=== PATIENT | female | born 1950 | race Caucasian/White ===

== ENCOUNTER → 2017-08-31 | Outpatient (CLI) | payer BC ==
[~2017-08-31] MED LIST: ASP325T PO; C250T PO; CHOL10007 PO; LVT.1T PO; MULT-301 PO; OMG1KC PO; VITA1TAB17 PO
--- NOTE | 2017-08-31 12:40 | Diagnostic Imaging Report ---
PROCEDURE: MRI right joint upper extremity without contrast. TECHNIQUE: A multiplanar/multisequence noncontrast enhanced MRI of the right upper extremity was accomplished. INDICATION: Right shoulder pain x 2 months. FINDINGS: There is no significant right shoulder joint effusion. There is abnormal increased T2 signal within the distal supraspinatus tendon with associated marrow edema within the adjacent humeral head. There is fluid in the subacromial and subdeltoid bursa with moderate acromioclavicular degenerative change. The teres minor and subscapularis muscle tendons appear to be unremarkable. There is no evidence of abnormality involving the long head biceps tendon. Evaluation of the labrum is limited without intra-articular fluid; however, no definite abnormality is seen. IMPRESSION: The findings are compatible with chronic tendinosis and a probable partial tear of the distal supraspinatus tendon with associated acromioclavicular degenerative change and subacromial/subdeltoid bursitis. There is no evidence of rotator cuff retraction. Dictated by: Dictated on workstation # [id number]
== END ==
LOC: RAD 11:12
PROVIDERS: ATTEND Orthopaedic Surgery
DX: M75.111 Incomplete rotator cuff tear or rupture of right shoulder, not specified as traumatic (principal); M19.011 Primary osteoarthritis, right shoulder
CPT/HCPCS: 73221

== ENCOUNTER 2017-09-27 12:27 | Outpatient (CLI) | payer BC ==
[~2017-09-27] VITALS: Ht 171.4 cm; Wt 83.0 kg
[2017-09-27] MEDS ORDERED: LEVO100T7 PO (12:47)
[2017-09-27] MEDS ORDERED: MULT1TAB69 PO (12:47)
[2017-09-27] MEDS ORDERED: ASPI-808 PO (12:47)
== END 2017-09-27 13:00 | disposition home or self-care (01) ==
LOC: PREOP 12:27
PROVIDERS: ATTEND Orthopaedic Surgery
DX: Z01.818 Encounter for other preprocedural examination (principal); Z11.2 Encounter for screening for other bacterial diseases; M75.101 Unspecified rotator cuff tear or rupture of right shoulder, not specified as traumatic
CPT/HCPCS: 87081

== ENCOUNTER 2017-09-29 07:35 | Day surgery (SDC) | payer BC ==
[~2017-09-29] VITALS: Ht 171.4 cm; Wt 83.0 kg
[2017-09-29 07:35] VITALS: BP 118/78
[~2017-09-29 07:35] MED LIST changes: +ASPI-808 PO; +LEVO100T7 PO; +MULT1TAB69 PO
--- OUTSIDE RECORDS SUMMARY | 2017-09-29 07:45 | XMS REPORT | Continuity of Care Document ---
Author Author [facility] Organization [facility] Address Unknown Phone Unavailable Allergies Active Description Code Type Severity Reaction Onset Reported/Identified Relationship to Patient Clinical Status Yes Penicillins [id number] Drug Allergy Moderate RASH 08/12/2007 Medications There is no data. Problems Date Dx Coded Attending Type Code Diagnosis Diagnosed By 01/07/2010 Ot 575.11 06/19/2015 Ot 575.8 06/19/2015 Ot V72.63 06/19/2015 Ot V74.8 06/19/2015 Ot 610.4 06/19/2015 Ot 733.90 06/19/2015 Ot V43.82 06/19/2015 Ot V76.12 06/19/2015 Ot 211.3 06/19/2015 Ot 216.5 06/19/2015 Ot 241.1 06/19/2015 Ot 244.9 06/19/2015 Ot 285.9 06/19/2015 Ot 286.3 06/19/2015 Ot 337.22 06/19/2015 Ot 415.19 06/19/2015 Ot 710.8 06/19/2015 Ot 719.49 06/19/2015 Ot 733.90 06/19/2015 Ot 780.52 06/19/2015 Ot 786.59 06/19/2015 Ot 791.9 06/19/2015 Ot 793.80 06/19/2015 Ot 795.01 06/19/2015 Ot 795.79 06/19/2015 Ot V58.61 06/19/2015 FLAKO GASTELUM DO Ot 710.2 06/24/2015 Ot 610.4 06/24/2015 Ot 733.90 06/24/2015 Ot V43.82 06/24/2015 Ot V76.12 06/24/2015 Ot 211.3 06/24/2015 Ot 216.5 06/24/2015 Ot 241.1 06/24/2015 Ot 244.9 06/24/2015 Ot 285.9 06/24/2015 Ot 286.3 06/24/2015 Ot 337.22 06/24/2015 Ot 415.19 06/24/2015 Ot 710.8 06/24/2015 Ot 719.49 06/24/2015 Ot 733.90 06/24/2015 Ot 780.52 06/24/2015 Ot 786.59 06/24/2015 Ot 791.9 06/24/2015 Ot 793.80 06/24/2015 Ot 795.01 06/24/2015 Ot 795.79 06/24/2015 Ot V58.61 06/24/2015 FLAKO GASTELUM DO Ot 710.2 06/26/2015 REMIGIO PEDERSON MD, Ot K57.90 DVRTCLOS OF INTEST, PART UNSP, W/O PERF 06/26/2015 REMIGIO PEDERSON MD, Ot K62.1 RECTAL POLYP 06/26/2015 REMIGIO PEDERSON MD, Ot K63.5 POLYP OF COLON 06/26/2015 REMIGIO PEDERSON MD, Ot K64.0 FIRST DEGREE HEMORRHOIDS 06/26/2015 RMEIGIO PEDERSON MD, Ot Z09 ENCNTR FOR F/U EXAM AFT TRTMT FOR COND O 06/26/2015 REMIGIO PEDERSON MD Ot Z12.11 ENCOUNTER FOR SCREENING FOR MALIGNANT NE 08/30/2017 FLAKO GASTELUM DO Ot 710.2 SICCA SYNDROME 08/30/2017 REMIGIO PEDERSON MD Ot Z01.818 ENCOUNTER FOR OTHER PREPROCEDURAL EXAMIN 08/30/2017 REMIGIO PEDERSON MD, Ot Z12.11 ENCOUNTER FOR SCREENING FOR MALIGNANT NE 08/30/2017 REMIGIO PEDERSON MD Ot Z86.010 PERSONAL HISTORY OF COLONIC POLYPS 09/01/2017 SALLY BURK MD Ot M19.011 PRIMARY OSTEOARTHRITIS, RIGHT SHOULDER 09/01/2017 SALLY BURK MD Ot M75.111 INCOMPLETE ROTATR-CUFF TEAR/RUPTR OF R S 09/16/2017 SALLY BURK MD Ot M19.011 PRIMARY OSTEOARTHRITIS, RIGHT SHOULDER 09/16/2017 SALLY BURK MD Ot M75.111 INCOMPLETE ROTATR-CUFF TEAR/RUPTR OF R S 09/23/2017 SALLY BURK MD Ot M19.011 PRIMARY OSTEOARTHRITIS, RIGHT SHOULDER 09/23/2017 SALLY BURK MD, Ot M75.111 INCOMPLETE ROTATR-CUFF TEAR/RUPTR OF R S 09/27/2017 SALLY BURK MD, Ot M19.011 PRIMARY OSTEOARTHRITIS, RIGHT SHOULDER 09/27/2017 SALLY BURK MD, Ot M75.111 INCOMPLETE ROTATR-CUFF TEAR/RUPTR OF R S 09/27/2017 SALLY BURK MD, Ot M19.011 PRIMARY OSTEOARTHRITIS, RIGHT SHOULDER 09/27/2017 SALLY BURK MD, Ot M75.111 INCOMPLETE ROTATR-CUFF TEAR/RUPTR OF R S 09/28/2017 SALLY BURK MD, Ot M75.101 UNSP ROTATR-CUFF TEAR/RUPTR OF RIGHT JOSUE 09/28/2017 SALLY BURK MD, Ot Z01.818 ENCOUNTER FOR OTHER PREPROCEDURAL EXAMIN 09/28/2017 SALLY BURK MD, Ot Z11.2 ENCOUNTER FOR SCREENING FOR OTHER BACTER Procedures There is no data. Results Test Result Range Methicillin resistant Staphylococcus aureus (MRSA) screening culture - 12:49 Methicillin resistant Staphylococcus aureus (MRSA) screening culture NEG NRG Encounters ACCT No. Visit Date/Time Discharge Status Pt. Type Provider Facility Loc./Unit Complaint [id number] 09/27/2017 12:27:00 09/27/2017 13:00:00 DIS Outpatient SALLY BURK MD [facility] PREOP RIGHT SHOULDER ROTATOR CUFF TEAR [id number] 08/31/2017 11:12:00 08/31/2017 23:59:59 CLS Outpatient SALLY BURK MD [facility] RAD ROTATOR CUFF TEAR PARTIAL RT [id number] 06/26/2015 09:11:00 06/26/2015 12:50:00 DIS Outpatient [facility] SCREEN[facility],HISTORY OF POLYPS [id number] 06/24/2015 14:53:00 06/24/2015 23:59:59 CLS Outpatient REMIGIO PEDERSON MD [facility] PREOP HISTORY POLPS [id number] 08/03/2013 12:45:00 08/03/2013 23:59:59 CLS Outpatient FLAKO GASTELUM DO [facility] LAB SICCA SYNDROME,SJOGRENS SYNDROME [id number] 09/29/2017 09:45:00 TREE BURK MD, SALLY [facility] RIGHT SHOULDER ROTATOR CUFF TEAR [id number] 11/16/2011 14:46:00 Document Registration [id number] 01/28/2010 09:56:00 Document Registration [id number] 01/07/2010 05:40:00 Document Registration [id number] 12/31/2009 10:34:00 Document Registration
--- OUTSIDE RECORDS SUMMARY | 2017-09-29 07:45 | XMS REPORT | Clinical Summary ---
Author Author User, [employer] ([employer]) Organization [facility] [place] Address Unknown Phone Unavailable Allergies, Adverse Reactions, Alerts Allergy Name Reaction Description Start Date Severity Status Provider PENICILLIN Dermatological problems, e.g., rash, hives Critical Active Natacha Domínguez Conditions or Problems Problem Name Problem Code Onset Date Status Entry Date Provider Comment Standard Description Annotate ABFND, IMMUNOLOGIL NOS 795.79 Resolved Natacha Domínguez Other and unspecified nonspecific immunological findings DEEP VENOUS THROMBOPHLEBITIS, RECURRENT 451.19 Resolved Natacha Domínguez Phlebitis and thrombophlebitis of other deep vessels of lower extremities PULMONARY EMBOLISM 415.19 Resolved Natacha Domínguez Other pulmonary embolism and infarction LEG PAIN, LEFT 729.5 Resolved Natacha Domínguez Pain in limb CHEST PAIN 786.50 Resolved Natacha Domínguez Unspecified chest pain DYSTROPHY, REFLEX SYMPATHETIC, LOWER LIMB 337.22 Resolved 11/29 Natacha Domínguez Reflex sympathetic dystrophy of the lower limb INSOMNIA, CHRONIC 780.52 Resolved Natacha Domínguez Insomnia, unspecified WEIGHT GAIN, ABNORMAL 783.1 Resolved Natacha Domínguez Abnormal weight gain COUMADIN THERAPY V58.61 Resolved Natacha Domínguez Long-term (current) use of anticoagulants COLONIC POLYPS 211.3 Resolved Natacha Domínguez Benign neoplasm of colon HEMATOMA 924.9 Resolved Natacha Domínguez Contusion of unspecified site Left arm POLYARTHRALGIA 719.49 Resolved Natacha Domínguez Pain in joint involving multiple sites WELL WOMAN V70.0 Resolved Natacha Domínguez Routine general medical examination at a health care facility NEVUS, ATYPICAL, ABDOMEN 216.5 Resolved Natacha Domínguez Benign neoplasm of skin of trunk, except scrotum ABDOMINAL PAIN, LEFT LOWER QUADRANT 789.04 Resolved Natacha Domínguez Abdominal pain, left lower quadrant COAGULOPATHY, COUMADIN-INDUCED 286.5 Resolved Natacha Domínguez Hemorrhagic disorder due to intrinsic circulating anticoagulants, antibodies, or inhibitors DISEASE, DIFFUSE CONNECTIVE TISSUE NEC 710.8 Resolved Natacha Domínguez Other specified diffuse diseases of connective tissue ANEMIA NOS 285.9 Resolved Natacha Domínguez Anemia, unspecified THYROID NODULE 241.0 Resolved Natacha Domínguez Nontoxic uninodular goiter OSTEOPENIA 733.90 Resolved Natacha Domínguez Disorder of bone and cartilage, unspecified HYPOTHYROIDISM, PRIMARY 244.9 Active Natacha Domínguez Unspecified hypothyroidism GOITER, MULTINODULAR 241.1 Resolved Natacha Domínguez Nontoxic multinodular goiter CHEST PAIN, ATYPICAL 786.59 Resolved Natacha Domínguez Other chest pain OTHER SCREENING MAMMOGRAM V76.12 Resolved Natacha Domínguez Other screening mammogram OSTEOPENIA 733.90 Resolved Natacha Domínguez Disorder of bone and cartilage, unspecified MAMMOGRAM, ABNORMAL, BILATERAL 793.80 Resolved Natacha Domínguez Abnormal mammogram, unspecified ASCUS PAP 795.01 Resolved Natacha Domínguez Papanicolaou smear of cervix with atypical squamous cells of undetermined significance (ASC-US) HIRSUTISM 704.1 Resolved Natacha Domínguez Hirsutism URINARY TRACT INFECTION (UTI) 599.0 Resolved Natacha Domínguez Urinary tract infection, site not specified KNEE PAIN 719.46 Active Natacha Domínguez Pain in joint involving lower leg SICCA SYNDROME 710.2 Active Natacha Domínguez Sicca syndrome TINEA CRURIS 110.3 Active Natacha Domínguez Dermatophytosis of groin and perianal area HEALTH SCREENING V70.0 Active Natacha Domínguez Routine general medical examination at a health care facility Medication List Medication Instructions Start Date Stop Date Generic Name NDC Status Provider Patient Instruction LOVENOX 40 MG/0.4ML SOLN 1 injection prior to air travel ENOXAPARIN SODIUM [id number] No Longer Active Natacha Domínguez ECONAZOLE NITRATE 1 % CREA apply to affected areas BID until resolved ECONAZOLE NITRATE 70489961290 No Longer Active Natacha Domínguez DIFLUCAN 100 MG TAB 1 PO daily FLUCONAZOLE 29979098540 No Longer Active Natacha Domínguez TRIAMCINOLONE ACETONIDE 0.1 % CREA apply BID until resolved 12/04 TRIAMCINOLONE ACETONIDE (TOP) 39371395366 No Longer Active Natacha Domínguez RETIN-A 0.025 % CREA Apply to affected areas nightly TRETINOIN 72607597405 Active Lissett Nelson RETIN-A 0.025 % CREA Apply qd prn TRETINOIN 38476587409 No Longer Active Natacha Domínguez BACTRIM DS 800-160 MG TABS 1 PO BID for 5 days SULFAMETHOXAZOLE-TRIMETHOPRIM 10302392075 No Longer Active Fredy Franklinne PYRIDIUM 200 MG TAB 1 PO TID prn urinary urgency PHENAZOPYRIDINE HCL 91047814416 No Longer Active Charisse Kaufman SYNTHROID 0.1 MG TAB 1 PO QD LEVOTHYROXINE SODIUM 47659012364 Active Lissett Nelson VALIUM 2 MG TAB 1-2 PO 1 hour before MRI DIAZEPAM 01906813697 No Longer Active Natacha Jordyn Domínguez FLAXSEED OIL 1000 MG CAPS 1 PO daily FLAXSEED (LINSEED) 53640407469 Active Natacha Jordyn Domínguez VITAMIN B-12 1000 MCG TABS 1 PO daily CYANOCOBALAMIN 00079979848 Active Natachamarvin Domínguez FISH OIL 1000 MG CAPS 1 PO daily OMEGA-3 FATTY ACIDS 85416084884 Active Natachamarvin Domínguez KENALOG 0.1 % CREA apply to affected areas BID prn TRIAMCINOLONE ACETONIDE 15123552591 No Longer Active Natacha Jordyn Domínguez MULTIVITAMINS TABS 1 PO QD MULTIPLE VITAMIN 41898634564 Active Natachamarvin Domínguez ST CARRANZA WORT 1000 MG CAPS [address] CARRANZA WORT 43034803741 Active Natachamarvin Domínguez LOVENOX 40 MG/0.4ML SOLN 1 Injection as directed daily ENOXAPARIN SODIUM 09731122821 No Longer Active Natachamarvin Domínguez CAPSAICIN 0.075 % CREA apply to left leg TID CAPSAICIN 87579449226 No Longer Active Natachamarvin Domínguez ASPIRIN 325 MG TAB 1 PO QD OTC ASPIRIN 18279899570 Active Natachamarvin Domínguez COUMADIN 3 MG TABS Take 7mg PO QD WARFARIN SODIUM 54469934360 No Longer Active Natacahmarvin Domínguez COUMADIN 4 MG TABS Take 7mg PO QD WARFARIN SODIUM 48864941985 No Longer Active Natacha Jordyn Domínguez COUMADIN 5 MG TABS 1 PO daily along with 4mg tab to equal 9 mg total. 2006 WARFARIN SODIUM 74420293174 No Longer Active Natacha Jordyn Domínguez COUMADIN 5 MG TAB Take along with 4mg to equal 9mg daily WARFARIN SODIUM 53536667808 No Longer Active Natacha Jordyn Domínguez COUMADIN 6 MG TABS 1 po daily along with a 5 mg. to equal 11 mg. WARFARIN SODIUM 11626011514 No Longer Active Natacha Jordyn Catrachita COUMADIN 4 MG TABS Take 2 tabs PO every other day. Alternate with 9mg. 09/01 WARFARIN SODIUM 70188160488 No Longer Active Natacha Jordyn Domínguez LORTAB 5 5-500 MG TABS prn HYDROCODONE-ACETAMINOPHEN 44967692701 No Longer Active Natacha Jordyn Domínguez VITAMIN E 200 IU CAPS 1 po daily VITAMIN E 74086073582 No Longer Active Natacha Jordyn Domínguez GARLIC 320 MG CAPS as directed GARLIC 13278502447 Active Natacha Jordyn Domínguez AMITRIPTYLINE HCL 25 MG TABS 1 po q hs AMITRIPTYLINE HCL 79273482579 No Longer Active Natacha Jordyn Domínguez LOVENOX 40 MG/0.4ML SOLN 1 SQ Q24hrs ENOXAPARIN SODIUM 57136202444 No Longer Active Natacha Jordyn Domínguez VITAMIN C 1000 MG TABS 1 po daily ASCORBIC ACID 92709409453 Active Natacha Jordyn Domínguez Immunizations Vaccine Administration Date Value Standard Description Influenza vaccine given done influenza virus vaccine, unspecified formulation Vital Signs Date Name Value Unit Range Description blood pressure, diastolic - 8462-4 80 mm[Hg] BP castañeda blood pressure, systolic - 8480-6 130 mm[Hg] BP sys pulse rate E&M - 8867-4 68 /min Heart rate respiratory rate E&M - 9279-1 14 /min Resp rate blood pressure, diastolic - 8462-4 84 mm[Hg] BP castañeda blood pressure, systolic - 8480-6 142 mm[Hg] BP sys pulse rate E&M - 8867-4 80 /min Heart rate respiratory rate E&M - 9279-1 14 /min Resp rate weight E&M - 3141-9 192 [lb_av] Weight Measured blood pressure, diastolic - 8462-4 82 mm[Hg] BP castañeda blood pressure, systolic - 8480-6 130 mm[Hg] BP sys pulse rate E&M - 8867-4 76 /min Heart rate respiratory rate E&M - 9279-1 14 /min Resp rate Diagnostic Results Date Name Value Unit Range Description Clinical Lists Update: CBC,CMP,FLP,TSH,Free T4 - Chemistry Estimated Glomerular Filtration Rate (calc) 58 mL/min/1.73m2 glucose, plasma fasting 85 mg/dL albumin, serum 3.5 g/dL alkaline phosphatase, serum 119 U/L urea nitrogen, blood 15 mg/dL calcium, serum 8.5 mg/dL chloride, serum 105 mmol/L cholesterol, serum 202 mg/dL sodium, serum 140 mmol/L triglyceride, serum, fasting 140 mg/dL bilirubin, serum, total 0.5 mg/dL alanine aminotransferase (SGPT), serum 29 U/L aspartate aminotransferase (SGOT), serum 12 U/L protein, total, serum 7.0 g/dL potassium, serum 3.6 mmol/L LDL cholesterol, serum 108 mg/dL thyroid stimulating hormone, serum 0.57 u[iU]/mL HDL cholesterol, serum 66 mg/dL thyroxine, serum, free 1.05 ng/dL creatinine, serum 0.97 mg/dL carbon dioxide, venous blood 28 mmol/L Clinical Lists Update: CBC,CMP,FLP,TSH,Free T4 - Hematology platelet count 184 10*3/mm3 erythrocyte (RBC) count 4.71 10*6/mm3 leukocyte count, blood 5.4 10*3/mm3 mean corpuscular volume, RBC 93.3 fL red blood cell distribution width 12.7 % hemoglobin, blood 14.2 g/dL hematocrit, blood 44.0 % Encounters Code Encounter Date Provider Facility CPT-29489 Ofc Vst, Est Level III 17:15:20 CDT Natacha Domínguez DO, FACP CPT-73035 Ofc Vst, Est Level III 16:30:06 CDT Natachamarvin Domínguez DO, FACP CPT-26432 Ofc Vst, Est Level IV 19:59:25 [employer] Natacha Domínguez DO, FACP CPT-40033 Ofc Vst, Est Level III 14:52:26 CDT Natacha Domínguez DO, FACP CPT-36357 Ofc Vst, Est Level III 14:31:16 CDT Natacha Domínguez DO, FACP CPT-62376 Ofc Vst, Est Level IV 14:18:50 CDT Natacha Domínguez DO, FACP CPT-58502 Ofc Vst, Est Level III 11:31:05 CDT Natacha Domínguez DO, FACP CPT-72645 Ofc Vst, Est Level III 11:02:30 [employer] Natacha Domínguez DO, FACP CPT-48159 Ofc Vst, Est Level IV 11:08:56 CDT Natachamarvin Jacobsner Natacha Fuller Catrachita, DO, FACP CPT-58066 Ofc Vst, Est Level IV 16:11:16 CDT Natacha Jordyn Fuller Catrachita, DO, FACP CPT-25043 Ofc Vst, Est Level IV 12:10:35 [employer] Natachamarvin Fuller Catrachita, DO, FACP CPT-78470 Ofc Vst, Est Level IV 12:01:44 [employer] Natachamarvin Fuller Catrachita, DO, FACP CPT-08237 Ofc Vst, Est Level III 16:57:09 CDT Natacha Jordyn Jacobsner Natacha Fuller Catrachita, DO, FACP CPT-13562 Ofc Vst, Est Level IV 10:45:33 CDT Natacha Jordyn Jacobsner Natacha Fuller Catrachita, DO, FACP CPT-80839 Ofc Vst, Est Level IV 12:14:27 CDT Natacha Jordyn Fuller Catrachita, DO, FACP CPT-07460 Ofc Vst, Est Level IV 14:11:42 CDT Natachamarvin Jacobsner Natacha Jonny Catrachita, DO, FACP CPT-13921 Ofc Vst, Est Level IV 11:44:04 [employer] Natacha Domínguez [facility] [place] CPT-99559 Ofc Vst, Est Level III 11:51:41 CDT Natacha Domínguez [facility] [place] CPT-74744 Ofc Vst, Est Level III 15:27:44 [employer] Natacha Domínguez [facility] [place] CPT-73256 Ofc Vst, Est Level IV 10:57:52 CDT Natacha Domínguez [facility] [place] CPT-11757 Ofc Vst, Est Level IV 19:22:56 CDT Natacha Jordyn Domínguez [facility] [place] CPT-62217 Ofc Vst, Est Level IV 13:24:48 CDT Natacha Domínguez [facility] [place] CPT-36877 Ofc Vst, Est Level III 14:54:21 CDT Natacha Domínguez [facility] [place] CPT-20533 Ofc Vst, New Level IV 12:58:07 CDT Natacha Domínguez [facility] [place] Procedures Code Procedure Name Date Entry Date Standard Description CPT-80130 Preventive, Est, (40-64) 12:05:11 [employer] CPT-94177 Preventive, Est, (40-64) 14:14:44 [employer] CPT-80477 Handling of specimen from office to lab 11:31:05 CDT CPT-37529 Excision of Benign Lesion 2.1-3.0 cm 19:41:36 CDT 03/10 CPT-67430 Excision of Benign Lesion 1.1-2.0 cm 19:41:36 CDT 03/10 CPT-87335 Excision of Benign Lesion 1.1-2.0 cm 19:41:36 CDT 03/10 CPT-51242 Excision of benign lesion 0.6-1.0 cm 19:41:36 CDT 03/10 CPT-08382 Preventive, Est, (40-64) 15:36:09 CDT CPT-23473 Handling of specimen from office to lab 15:36:09 CDT
[2017-09-29] MEDS ORDERED: LACTATED RINGERS 1,000 ML IV PRN (08:07)
[2017-09-29] MEDS ORDERED: CLINDAMYCIN 600 MG/50 ML IVPB 50 ML IV ONE (08:15)
[2017-09-29] MEDS ORDERED: MIDAZOLAM 2 MG/2 ML (VERSED) VIAL ONE (08:34)
[2017-09-29] MEDS ORDERED: proPOfol 200 MG/20 ML (DIPRIVAN) VIAL IV ONE (08:34)
[2017-09-29] MEDS ORDERED: fentaNYL INJECTION 100 MCG/2 ML AMP ONE (08:34)
[2017-09-29] MEDS ORDERED: ONDANSETRON 4 MG/2 ML (SDV) Z0FRAN ONE ×2 (08:34→12:36)
[2017-09-29] MEDS ORDERED: LIDOCAINE PF 2% 5 ML (XYLOCAINE) VIAL ONE (08:34)
[2017-09-29] MEDS ORDERED: SEVOFLURANE (ULTANE) 15 ML INHAL SOLN ONE ×4 (08:34→10:21)
[2017-09-29] MEDS ORDERED: morphine PF (DURAMORPH) 10 MG/10 ML AMP ONE (09:10)
[2017-09-29] MEDS ORDERED: BUPIVACAINE 0.25% 30 ML (SENSORCAINE) VIAL ONE (09:10)
[2017-09-29] MEDS ORDERED: oxyCODONE/APAP 5/325MG (PERCOCET 5) TABLET PO PRN (09:15)
--- NOTE | 2017-09-29 09:15 | Progress Note-Pre Operative ---
Pre-Operative Progress Note H&P Reviewed The H&P was reviewed, patient examined and no changes noted. Date Seen by Provider: September 29, 2017 Time Seen by Provider: 09:14 Date H&P Reviewed: September 29, 2017 Time H&P Reviewed: 09:14 Pre-Operative Diagnosis: right rotator cuff tear SALLY BURK MD September 29, 2017 09:14
--- NOTE | 2017-09-29 09:17 | Progress Note-Post Operative ---
Post-Operative Progess Note Surgeon (s)/Prototype Model Maker (s) Surgeon SALLY BURK MD Prototype Model Maker: Frandy Campbell Pre-Operative Diagnosis right rotator cuff tear Post-Operative Diagnosis right rotator cuff tear and labral tear Procedure & Operative Findings Date of Procedure 09/29/17 Procedure Performed/Findings right shoulder arthroscopic acromioplasty, labral debridement and open rotator cuff repair Anesthesia Type GETA Estimated Blood Loss Estimated blood loss (mL): minimal Specimens/Packing Specimens Removed none Packing: none SALLY BURK MD September 29, 2017 09:16
[2017-09-29] MEDS ORDERED: ROCURONIUM 10 MG/ML 5 ML SYRINGE IV ONE (10:20)
[2017-09-29] MEDS ORDERED: GLYCOPYRROLATE 0.2 MG/ML (ROBINUL) 2 ML VIAL ONE (10:26)
[2017-09-29] MEDS ORDERED: NEOSTIGMINE 1 MG/ML 5 ML SYRINGE ONE (10:26)
[2017-09-29] MEDS ORDERED: PHENYLEPHRINE 100 MCG/ML 10 ML (ANESTHESIA) SYR ONE (10:52)
[2017-09-29] MEDS ORDERED: ONDANSETRON 4 MG/2 ML (SDV) Z0FRAN IVP PRN (11:00)
[2017-09-29] MEDS: morphine INJ 10 MG/ML 1ML (SYR OR VIAL) IVP PRN ×2 (11:07→11:15)
[2017-09-29 11:55] VITALS: BP 135/83
[2017-09-29 12:30] VITALS: BP 116/71
[2017-09-29] MEDS ORDERED: ONDANSETRON 4 MG/2 ML (SDV) Z0FRAN IVP ONE (12:45)
[2017-09-29 13:00] VITALS: BP 106/71
[2017-09-29] MEDS ORDERED: PROMETHAZINE INJ 25 MG/ML (PHENERGAN) AMP ONE (13:24)
[2017-09-29] MEDS ORDERED: PROMETHAZINE INJ 25 MG/ML (PHENERGAN) AMP IVP PRN (13:30)
[2017-09-29] MEDS ORDERED: PROMETHAZINE INJ 25 MG/ML (PHENERGAN) AMP IVP ONE (13:45)
[2017-09-29] MEDS ORDERED: OXYC-471 PO (15:01)
[2017-09-29 15:30] VITALS: BP 108/65
[2017-09-29 15:53] VITALS: BP 108/65
--- NOTE | 2017-09-29 18:28 | OPERATIVE REPORT ---
DATE OF SERVICE: 09/29/2017 PREOPERATIVE DIAGNOSIS: Right rotator cuff tear. POSTOPERATIVE DIAGNOSES: 1. Right rotator cuff tear. 2. Right shoulder labral tear. PROCEDURE: 1. Right shoulder arthroscopic labral debridement. 2. Right shoulder arthroscopic acromioplasty. 3. Right shoulder open rotator cuff repair. SURGEON: Thierry Burk MD. FACSIMILE OPERATOR: Frandy Campbell, who assisted throughout the procedure and closed the incisions. ANESTHESIA: General endotracheal by Lakisha Saleh CRNA. ESTIMATED BLOOD LOSS: Minimal. DRAINS: None. COMPLICATIONS: None. Postoperative plan is passive range of motion. Sling wear for 4 weeks. The patient was transferred to the recovery room, awake and in stable condition. STATEMENT OF MEDICAL NECESSITY: The patient is a 66-year-old right-hand dominant female with complaints of progressively worsening right shoulder pain. She had weakness with abduction and external rotation. She had failed to respond to conservative measures. An MRI revealed a near full thickness supraspinatus tear and due to functional impairment and failure to improve with conservative measures, the patient elected to proceed with surgical intervention. Examination under anesthesia revealed range of motion of forward elevation 170 degrees, external rotation 90 degrees, internal rotation of 80 degrees. Arthroscopic findings, the glenoid demonstrate grade II chondral softening superiorly in a 5 x 5 area. There was an anterior labral flap at the 2 o'clock position, but the capsule labral complex was intact otherwise throughout. There was a full thickness supraspinatus tear with partial thickness tearing associated with this in a 1 x 2 cm area on the anterior footprint. Subacromial space demonstrated moderate bursitis with slight slope in the anterolateral acromion. PROCEDURE: After risks and benefits of procedure were discussed and questions were answered, an informed consent was signed and placed on the chart. The operative site was confirmed in the preoperative holding area initialed by the surgeon. The patient transported to the operating room. After adequate levels of general endotracheal anesthetic were obtained, a timeout was called confirming the operative site. Examination under anesthesia was performed with above findings noted. The right shoulder and upper extremity were prepped and draped in the usual sterile fashion. The right shoulder was injected with 20 mL of fluid as was the subacromial space. Standard posterior portal was placed and a diagnostic arthroscopy was carried out with the above findings noted. An anterior portal was created and the anterior labral flap was debrided with shaver back to a stable edge. Scope was redirected in subacromial space and lateral portal was created. Bursectomy was performed and the acromion was planed to a flat type 1 acromion. The lateral portal was then extended and the deltoid was split in line with its fibers leaving attached to the acromion for later reapproximation. The rotator cuff tear was completed and a single corkscrew anchor was placed in a modified Mio -- Arnie repair was obtained with a good repair obtained and reapproximation to its insertion site. The wound was copiously irrigated. The deltoid was repaired in a side to side fashion using #2 FiberWire in [id number] interrupted fashion. The wound was further irrigated. A 2-0 Vicryl was used to reapproximate subcutaneous tissue. The portal sites were closed with 4-0 nylon simple interrupted fashion and the incision was then closed with 4-0 nylon in running alternating horizontal mattress fashion. A soft dressing and sling were applied and the patient was transferred to the recovery room, awake and in stable condition. Job ID: [id number] DocumentID: [id number] Dictated Date: 09/29/2017 10:35:20 Violin Restorer Date: 09/29/2017 18:28:21 Dictated By: THIERRY BURK MD
== END 2017-09-29 15:53 | disposition home or self-care (01) ==
LOC: SDC 07:35
PROVIDERS: ATTEND Orthopaedic Surgery
DX: M75.111 Incomplete rotator cuff tear or rupture of right shoulder, not specified as traumatic (principal); Z86.718 Personal history of other venous thrombosis and embolism

== ENCOUNTER → 2019-06-26 | Outpatient (CLI) | payer MEDICARE, OTHER ==
[~2019-06-26] MED LIST changes: +OXYC-471 PO
[2019-06-26 08:49] LABS: BASOPHILS % (AUTO) 1 % (0-10); EOSINOPHILS # (AUTO) 0.1 10^3/uL (0.0-0.3); EOSINOPHILS % (AUTO) 2 % (0-10); HEMATOCRIT 41 % (35-52); HEMOGLOBIN 13.6 G/DL (11.5-16.0); LYMPHOCYTES # (AUTO) 2.2 X 10^3 (1.0-4.0); LYMPHOCYTES % (AUTO) 36 % (12-44); MEAN CORPUSCULAR HEMOGLOBIN 30 PG (25-34); MEAN CORPUSCULAR HGB CONC 33 G/DL (32-36); MEAN CORPUSCULAR VOLUME 90 FL (80-99); MEAN PLATELET VOLUME 10.6 FL (7.4-10.4); MONOCYTES # (AUTO) 0.4 X 10^3 (0.0-1.0); MONOCYTES % (AUTO) 7 % (0-12); NEUTROPHILS # (AUTO) 3.3 X 10^3 (1.8-7.8); NEUTROPHILS % (AUTO) 54 % (42-75); PLATELET COUNT 190 10^3/uL (130-400); RED CELL DISTRIBUTION WIDTH 13.6 % (10.0-14.5); WHITE BLOOD COUNT 6.1 10^3/uL (4.3-11.0)
[2019-06-26 08:58] LABS: BILIRUBIN,URINE NEGATIVE (NEGATIVE); CLARITY,URINE CLEAR; COLOR,URINE YELLOW; GLUCOSE, URINE (UA) NEGATIVE (NEGATIVE); KETONES,URINE NEGATIVE (NEGATIVE); LEUKOCYTE ESTERASE ,URINE 1+ (NEGATIVE); NITRITE,URINE NEGATIVE (NEGATIVE); PROTEIN,URINE NEGATIVE (NEGATIVE)
--- NOTE | 2019-06-26 09:01 | Diagnostic Imaging Report ---
INDICATION: Abdominal pain and flank pain. TIME OF EXAM: 8:53 AM There are surgical clips in the right upper quadrant. The bowel gas pattern is nonobstructed. No pathologic calcifications are seen. No definite free air is identified. IMPRESSION: No acute abnormality is detected. Dictated by: Dictated on workstation # [id number]
[2019-06-26 09:04] LABS: BACTERIA,URINE TRACE /HPF
[2019-06-26 09:10] LABS: ALANINE AMINOTRANSFERASE 13 U/L (0-55); ALBUMIN 4.1 GM/DL (3.2-4.5); ALKALINE PHOSPHATASE 98 U/L (40-136); BILIRUBIN,TOTAL 0.6 MG/DL (0.1-1.0); BUN/CREATININE RATIO 14; CALCIUM 9.3 MG/DL (8.5-10.1); CARBON DIOXIDE 26 MMOL/L (21-32); CHLORIDE 106 MMOL/L (98-107); CREATININE SERUM 0.91 MG/DL (0.60-1.30); GFR ESTIMATED > 60; GLUCOSE 99 MG/DL (70-105); POTASSIUM 4.2 MMOL/L (3.6-5.0); SODIUM 140 MMOL/L (135-145); TOTAL PROTEIN 6.8 GM/DL (6.4-8.2)
[2019-06-26 09:58] LABS: ERYTHROCYTE SEDIMENTATION RATE 14 MM/HR (0-30)
== END ==
LOC: RAD 08:35
PROVIDERS: ATTEND Internal Medicine
DX: R10.9 Unspecified abdominal pain (principal); Z98.890 Other specified postprocedural states
CPT/HCPCS: 36415; 74018; 80053; 81000; 85025; 85652; 86141; 87088

== ENCOUNTER → 2019-07-06 | Outpatient (CLI) | payer MEDICARE, OTHER ==
--- NOTE | 2019-07-06 14:17 | Diagnostic Imaging Report ---
INDICATION: Chronic back pain, no known injury TECHNIQUE: AP, Lateral and Spot imaging of the lumbar spine CORRELATION STUDY: None FINDINGS: Lumbar spinal alignment relatively anatomic. Lumbar vertebral body heights maintained. Various degrees of disc space narrowing at the lumbar spine. Endplate lipping multiple levels. Hypertrophic facet arthropathy at the L5-S1, L4-L5 and L3-L4 levels. Mild vascular opacification abdominal aorta. Heterogeneous calcification the right hemipelvis, nonspecific could be perhaps related to a fibroid uterus. Cholecystectomy clips in right upper quadrant. Acute angulation at the low sacrum and coccyx likely developmental or nonacute. IMPRESSION: No radiographic evidence for acute bony abnormality of the lumbar spine. Mild to moderately advanced degenerative changes lumbar spine. Dictated by: Dictated on workstation # [id number]
--- NOTE | 2019-07-06 14:17 | Diagnostic Imaging Report ---
PATIENT: Jazmín VILLALOBOS INDICATION: Chronic back pain, no known injury. TECHNIQUE: AP and lateral views sacrum coccyx 11:30 AM. CORRELATION STUDY: None FINDINGS: There is a acute angulation at the low sacrum and coccyx. However, no definitive offset approximately suggest acute fractures may be developmental or owing to previous injury. The sacrum and coccyx otherwise generally unremarkable. SI joints are without significant erosion. Visualized bilateral hips are unremarkable. There is desiccation right hemipelvis may reflect underlying fibroid. IMPRESSION: 1. Abnormal accumulation low sacrum coccyx are likely chronic or perhaps a developmental. No suggestion for acute bony abdomen. Dictated by: Dictated on workstation # [id number]
== END ==
LOC: RAD 11:07
PROVIDERS: ATTEND Surgery
DX: M47.816 Spondylosis without myelopathy or radiculopathy, lumbar region (principal)
CPT/HCPCS: 72100; 72220

== ENCOUNTER 2022-05-28 10:33 | Outpatient (CLI) | payer MEDICARE, OTHER ==
[~2022-05-28] VITALS: Ht 170.2 cm; Wt 77.3 kg
[~2022-05-28 10:33] MED LIST changes: +ASCO250T16 PO; -C250T PO; +MULT-567 PO; -MULT1TAB69 PO; -OXYC-471 PO; +OXYC1TAB11 PO
== END 2022-06-04 08:03 | disposition home or self-care (01) ==
LOC: PREOP 10:33
PROVIDERS: ATTEND Specialist
DX: Z01.818 Encounter for other preprocedural examination (principal)

== ENCOUNTER 2022-06-05 07:25 | Day surgery (SDC) | payer MEDICARE, OTHER ==
[~2022-06-05] VITALS: Ht 176.2 cm; Wt 77.3 kg
[2022-06-05] MEDS: TETRACAINE 0.5% OPHTH SOLN 4 ML BTL (SINGLE DOSE ONLY) OU PRN ×4 (07:39→07:55)
[2022-06-05] MEDS ORDERED: POVIDONE (BETADINE) OPHTH SOLN 5% 30 ML OP ONE (07:45)
[2022-06-05] MEDS ORDERED: TIMOLOL 0.5% (CATARACTS) 0.3 ML BTL OU PRN (07:45)
[2022-06-05] MEDS: PHENYLEPHRINE 10% OPHTH (NEO-SYN) 5 ML BTL OU SCH ×3 (07:45→07:55)
[2022-06-05] MEDS: TROPICAMIDE 1% OPH SOLN (MYDRIACYL) 15 ML BTL OP SCH ×3 (07:45→07:55)
[2022-06-05] MEDS ORDERED: MOXIFLOXACIN OPHTH SOLN 5 MG/ML 0.3 ML SYRINGE OP ONE (07:45)
[2022-06-05 07:47] VITALS: BP 134/82
[2022-06-05] MEDS ORDERED: MIDAZOLAM 2 MG/2 ML (VERSED) VIAL ONE (08:22)
--- NOTE | 2022-06-05 08:37 | Ophthalmologist Pre-Op Note ---
Pre-Operative Progress Note H&P Reviewed The H&P was reviewed, patient examined and no changes noted. Date H&P Reviewed: Jun 05, 2022 Time H&P Reviewed: 08:36 Pre-Op Dx Cataract, Right Eye HOLLY MULLINS MD Jun 05, 2022 08:37
--- NOTE | 2022-06-05 08:58 | Ophthalmology Operative Report ---
Cataract removal/placement IOL PREOPERATIVE DIAGNOSIS: Cataract Right Eye POSTOPERATIVE DIAGNOSIS: Cataract Right Eye PROCEDURE: Cataract removal and placement of posterior chamber implant, right eye SURGEON: Ankit Mullins ANESTHESIA: Topical with sedation COMPLICATIONS: None ESTIMATED BLOOD LOSS: Minimal DESCRIPTION OF PROCEDURE: After proper informed consent was obtained, the patient, a 71 female, was taken to the Operating Room and the right eye was anesthetized with tetracaine. The right eye was then prepped and draped in the usual manner. A wire lid speculum was placed. A paracentesis was made at the left hand position. Preservative free lidocaine was injected into the anterior chamber followed by viscoelastic. A clear corneal incision was made in the temporal position. A capsulorrhexis was preformed and the central nuclear and cortical material were removed. The posterior capsule was polished and Seferino 19.5 AU00T0 IOL was placed into the capsular bag. The residual viscoelastic was aspirated and balanced saline solution was injected into the anterior chamber. Moxifloxacin was injected into the anterior chamber. The wound was checked and found to be water tight. The patient tolerated the procedure well without complications. ANKIT MULLINS MD Jun 05, 2022 08:58
[2022-06-05 09:07] VITALS: BP 122/75
--- NOTE | 2022-06-05 09:52 | Anesthesia-General Post-Op ---
MAC Patient Condition Mental Status/LOC: Same as Preop Cardiovascular: Satisfactory Nausea/Vomiting: Absent Respiratory: Satisfactory Pain: Controlled Complications: Absent Post Op Complications Complications None Follow Up Care/Instructions Patient Instructions None needed. Anesthesiology Discharge Order Discharge Order Patient was doing well this morning after the procedure with no complaints, stable vital signs, no apparent adverse anesthesia problems. No complications reported per nursing. WALLACE MILLER DO Jun 05, 2022 09:52
[2022-06-05] MEDS ORDERED: acetaZOLAMIDE ER 500 MG CAP (DIAMOX SEQUELS) PO ONE (12:00)
== END 2022-06-05 09:13 | disposition home or self-care (01) ==
LOC: SDC 07:25
PROVIDERS: ATTEND Specialist
DX: H25.9 Unspecified age-related cataract (principal)
CPT/HCPCS: 66984; V2632

== ENCOUNTER 2022-06-19 06:54 | Day surgery (SDC) | payer MEDICARE, OTHER ==
[~2022-06-19] VITALS: Wt 77.3 kg
[2022-06-19] MEDS ORDERED: TIMOLOL 0.5% (CATARACTS) 0.3 ML BTL OU PRN (07:00)
[2022-06-19] MEDS ORDERED: MOXIFLOXACIN OPHTH SOLN 5 MG/ML 0.3 ML SYRINGE OP ONE (07:00)
[2022-06-19] MEDS ORDERED: POVIDONE (BETADINE) OPHTH SOLN 5% 30 ML OP ONE (07:00)
[2022-06-19] MEDS: TETRACAINE 0.5% OPHTH SOLN 4 ML BTL (SINGLE DOSE ONLY) OU PRN ×4 (07:08→07:23)
[2022-06-19] MEDS: PHENYLEPHRINE 10% OPHTH (NEO-SYN) 5 ML BTL OU SCH ×3 (07:11→07:23)
[2022-06-19] MEDS: TROPICAMIDE 1% OPH SOLN (MYDRIACYL) 15 ML BTL OP SCH ×3 (07:12→07:23)
[2022-06-19 07:19] VITALS: BP_SYST 104; BP_SYST 119; BP_DIAS 76; BP_DIAS 85
[2022-06-19] MEDS ORDERED: MIDAZOLAM 2 MG/2 ML (VERSED) VIAL ONE (07:55)
--- NOTE | 2022-06-19 08:06 | Ophthalmologist Pre-Op Note ---
Pre-Operative Progress Note H&P Reviewed The H&P was reviewed, patient examined and no changes noted. Date H&P Reviewed: Jun 19, 2022 Time H&P Reviewed: 08:06 Pre-Op Dx Cataract, Left Eye HOLLY MULLINS MD Jun 19, 2022 08:06
--- NOTE | 2022-06-19 08:32 | Ophthalmology Operative Report ---
Cataract removal/placement IOL PREOPERATIVE DIAGNOSIS: Cataract Left Eye POSTOPERATIVE DIAGNOSIS: Cataract Left Eye PROCEDURE: Cataract removal and placement of posterior chamber implant, left eye SURGEON: Ankit Mullins ANESTHESIA: Topical with sedation COMPLICATIONS: None ESTIMATED BLOOD LOSS: Minimal DESCRIPTION OF PROCEDURE: After proper informed consent was obtained, the patient, a 71 female, was taken to the Operating Room and the left eye was anesthetized with tetracaine. The left eye was then prepped and draped in the usual manner. A wire lid speculum was placed. A paracentesis was made at the left hand position. Preservative free lidocaine was injected into the anterior chamber followed by viscoelastic. A clear corneal incision was made in the temporal position. A capsulorrhexis was preformed and the central nuclear and cortical material were removed. The posterior capsule was polished and an Seferino 19.0 AU00T0 was placed into the capsular bag. The residual viscoelastic was aspirated and balanced saline solution was injected into the anterior chamber. Moxifloxacin was injected into the anterior chamber. The wound was checked and found to be water tight. The patient tolerated the procedure well without complications. ANKIT MULLINS MD Jun 19, 2022 08:32
[2022-06-19] MEDS ORDERED: acetaZOLAMIDE ER 500 MG CAP (DIAMOX SEQUELS) PO ONE (11:00)
--- NOTE | 2022-06-19 13:00 | Anesthesia-General Post-Op ---
MAC Patient Condition Mental Status/LOC: Same as Preop Cardiovascular: Satisfactory Nausea/Vomiting: Absent Respiratory: Satisfactory Pain: Controlled Complications: Absent Post Op Complications Complications None Follow Up Care/Instructions Patient Instructions None needed. Anesthesiology Discharge Order Discharge Order Patient is doing well, no complaints, stable vital signs, no apparent adverse anesthesia problems. No complications reported per nursing. ROSALIO CASTILLO CRNA Jun 19, 2022 13:00
== END 2022-06-19 08:37 | disposition home or self-care (01) ==
LOC: SDC 06:54
PROVIDERS: ATTEND Specialist
DX: H25.9 Unspecified age-related cataract (principal)
CPT/HCPCS: 66984; V2632